=== PATIENT | female | born 1950 | race Caucasian/White ===

== ENCOUNTER 2021-02-18 19:34 | Inpatient (IN) ==
[2021-02-18] MEDS ORDERED: SODIUM CHLORIDE 0.9% 1,000 ML IV STA (19:50)
[2021-02-18 20:21] LABS: Bacteria,Urine Moderate /HPF (Few); Bilirubin,Urine Negative (Negative); Blood, Urine Small mg/dL (Negative); Glucose,Urine (UA) Negative (Negative); Ketones,Urine Negative (Negative); Mucus,Urine Occasional /LPF (Occasional); Nitrite,Urine Positive (Negative); Protein,Urine 30 MG/DL; Squamous Epithelial Cell,Urine Occasional /HPF (0-10); Urine Appearance CLOUDY (Clear); Urine Color Amber (Yellow); Urine Specific Gravity 1.016 (1.001-1.035)
[2021-02-18 20:22] LABS: Barbiturates Screen,Urine Negative (Negative); Basophils % 0.2 % (0.0-0.8); Benzodiazepines Screen,Urine Negative (Negative); Cannabinoid Screen,Urine Negative (Negative); Eosinophils # 0.1 10*3/uL (0.0-0.87); Eosinophils % 1.4 % (0.00-10.9); Hematocrit 38.8 VOL% (35.7-47.0); Hemoglobin 12.2 GM/DL (12.0-16.0); Immature Granulocytes % 0.5 %; Immature Granulocytes Absolute 0.04 #; Lymphocytes # 2.3 10*3/uL (1.4-4.0); Lymphocytes % 26.9 % (21.3-54.2); Mean Corpuscular HGB Conc 31.4 GM/DL (32-36); Mean Corpuscular Volume 100.3 FL (87-102); Mean Platelet Volume 9.6 FL (9.6-12.0); Monocytes % 17.2 % (1.7-12.7); Neutrophils % 53.8 % (38.7-73.9); Opiate Screen,Urine Negative (Negative); Phencyclidine Screen,Urine Negative (Negative); Platelet Count 196 T/CUMM (130-400); Red Blood Count 3.87 MC/CUMM (3.8-5.5); Red Cell Distribution Width 12.3 % (9.3-17.3); White Blood Count 8.5 T/CUMM (4-12)
[2021-02-18 20:39] LABS: Albumin 2.8 G/DL (3.4-5.0); Bilirubin,Total 0.5 MG/DL (0.20-1.00); Calcium 9.6 MG/DL (8.5-10.1); Osmolality,Calculated 285.5 MOS/KG (273-304); Potassium 3.8 MMOL/L (3.5-5.1); Total Protein 6.8 G/DL (6.4-8.2)
[2021-02-18] MEDS ORDERED: LEVOFLOXACIN INJ 500 MG/100 ML PREMIX IV ONE (20:57)
[2021-02-18 23:42] LABS: Lymphocytes 31 % (20-55); Platelet Estimate Normal; Segmented Neutrophils 59 % (50-85); Total Cells Counted 100
[2021-02-18 23:43] LABS: Macrocytosis Slight; Stomatocytes 1+
[2021-02-19] MEDS ORDERED: GLUCAGON 1 MG VIAL IM PRN (03:45)
[2021-02-19] MEDS ORDERED: DEXTROSE 50% 25 GM/50 ML VIAL IV PRN (03:45)
[2021-02-19] MEDS ORDERED: ONDANSETRON 4 MG/2 ML VIAL IV PRN (03:51)
[2021-02-19] MEDS ORDERED: DOCUSATE SODIUM 100 MG CAPSULE PO PRN (03:51)
[2021-02-19] MEDS ORDERED: POTASSIUM CHLORIDE 20 MEQ TABLET PO PRN (03:54)
[2021-02-19] MEDS ORDERED: MAGNESIUM SULF RIDER 2 GM/50 ML PREMIX IV PRN (03:54)
[2021-02-19] MEDS ORDERED: MAGNESIUM SULF RIDER 4 GM/100 ML PREMIX IV PRN (03:54)
[2021-02-19] MEDS: SODIUM CHLORIDE 0.9% 1,000 ML IV SCH ×3 (04:30→23:39)
[2021-02-19 05:03] LABS: Basophils % 0.5 % (0.0-0.8); Eosinophils # 0.2 10*3/uL (0.0-0.87); Eosinophils % 1.8 % (0.00-10.9); Hematocrit 36.1 VOL% (35.7-47.0); Hemoglobin 11.8 GM/DL (12.0-16.0); Immature Granulocytes % 0.5 %; Immature Granulocytes Absolute 0.04 #; Lymphocytes # 2.3 10*3/uL (1.4-4.0); Lymphocytes % 27.7 % (21.3-54.2); Mean Corpuscular HGB Conc 32.7 GM/DL (32-36); Mean Corpuscular Volume 97.3 FL (87-102); Mean Platelet Volume 9.7 FL (9.6-12.0); Monocytes % 17.8 % (1.7-12.7); Neutrophils % 51.7 % (38.7-73.9); Platelet Count 189 T/CUMM (130-400); Red Blood Count 3.71 MC/CUMM (3.8-5.5); Red Cell Distribution Width 12.2 % (9.3-17.3); White Blood Count 8.2 T/CUMM (4-12)
[2021-02-19 05:19] LABS: Osmolality,Calculated 279.7 MOS/KG (273-304); Potassium 3.9 MMOL/L (3.5-5.1)
[2021-02-19 05:36] LABS: Hypochromasia Slight; Lymphocytes 28 % (20-55); Microcytosis Slight; Platelet Estimate Adequate; Segmented Neutrophils 58 % (50-85); Total Cells Counted 100
[2021-02-19] MEDS: INSULIN LISPRO 100 UNIT/ML SUBCUT SCH ×4 (09:21→20:44)
[2021-02-19] MEDS ORDERED: BENZTROPINE 0.5 MG TABLET PO SCH (12:00)
[2021-02-19] MEDS ORDERED: BENZTROPINE 1 MG TABLET PO SCH (13:00)
[2021-02-19] MEDS: DIVALPROEX 500 MG TABLET PO SCH ×2 (13:20→20:44)
[2021-02-19] MEDS: OLANZapine 5 MG TABLET PO SCH ×2 (13:20→20:43)
[2021-02-19] MEDS: SERTRALINE 50 MG TABLET PO SCH (13:20)
[2021-02-19] MEDS ORDERED: ZINC OXIDE PASTE 113 GM TUBE TOP PRN (14:29)
[2021-02-19] MEDS: ACETAMINOPHEN 325 MG TABLET PO PRN (17:06)
[2021-02-19] MEDS: VITAMIN A & D OINT 113 GM TUBE TOP SCH (17:44)
[2021-02-19] MEDS: HEPARIN 5,000 UNIT/1 ML VIAL SUBCUT SCH (18:30)
[2021-02-19] MEDS: MONTELUKAST 10 MG TABLET PO SCH (20:43)
[2021-02-19] MEDS: BENZTROPINE 0.5 MG TABLET PO SCH (20:43)
[2021-02-19] MEDS ORDERED: LEVOFLOXACIN INJ 500 MG/100 ML PREMIX IV SCH (21:00)
[2021-02-20] MEDS: BENZTROPINE 0.5 MG TABLET PO SCH ×2 (02:00→08:59)
[2021-02-20] MEDS: HEPARIN 5,000 UNIT/1 ML VIAL SUBCUT SCH ×3 (02:46→17:59)
[2021-02-20 06:02] LABS: Basophils % 0.2 % (0.0-0.8); Eosinophils # 0.1 10*3/uL (0.0-0.87); Eosinophils % 1.7 % (0.00-10.9); Hematocrit 33.6 VOL% (35.7-47.0); Hemoglobin 10.7 GM/DL (12.0-16.0); Immature Granulocytes % 0.5 %; Immature Granulocytes Absolute 0.04 #; Lymphocytes # 2.6 10*3/uL (1.4-4.0); Lymphocytes % 31.1 % (21.3-54.2); Mean Corpuscular HGB Conc 31.8 GM/DL (32-36); Mean Platelet Volume 9.8 FL (9.6-12.0); Monocytes % 17.7 % (1.7-12.7); Neutrophils % 48.8 % (38.7-73.9); Platelet Count 189 T/CUMM (130-400); Red Blood Count 3.36 MC/CUMM (3.8-5.5); Red Cell Distribution Width 12.4 % (9.3-17.3); White Blood Count 8.3 T/CUMM (4-12)
[2021-02-20 06:26] LABS: Calcium 8.2 MG/DL (8.5-10.1); Osmolality,Calculated 283.3 MOS/KG (273-304); Potassium 3.9 MMOL/L (3.5-5.1)
[2021-02-20] MEDS: SERTRALINE 50 MG TABLET PO SCH (08:59)
[2021-02-20] MEDS: DIVALPROEX 500 MG TABLET PO SCH ×2 (09:00→22:21)
[2021-02-20] MEDS: OLANZapine 5 MG TABLET PO SCH ×2 (09:01→20:30)
[2021-02-20] MEDS: INSULIN LISPRO 100 UNIT/ML SUBCUT SCH ×4 (09:01→22:21)
[2021-02-20] MEDS: SODIUM CHLORIDE 0.9% 1,000 ML IV SCH ×3 (09:01→22:51)
[2021-02-20] MEDS: VITAMIN A & D OINT 113 GM TUBE TOP SCH (09:07)
[2021-02-20 11:52] LABS: Lymphocytes 29 % (20-55); Platelet Estimate Adequate; Polychromasia Slight; Segmented Neutrophils 59 % (50-85); Total Cells Counted 100
[2021-02-20] MEDS ORDERED: GENTAMICIN IV SCH (15:30)
[2021-02-20] MEDS ORDERED: SODIUM CHLORIDE 0.9% IV SCH (15:30)
[2021-02-20] MEDS ORDERED: GENTAMICIN INJ 400 MG in SODIUM CHLORIDE 0.9% 100 ML IV SCH (16:00)
[2021-02-20] MEDS: ACETAMINOPHEN 325 MG TABLET PO PRN (20:30)
[2021-02-20] MEDS: MONTELUKAST 10 MG TABLET PO SCH (20:30)
[2021-02-21] MEDS: HEPARIN 5,000 UNIT/1 ML VIAL SUBCUT SCH ×3 (01:45→16:41)
[2021-02-21 06:18] LABS: Basophils % 0.3 % (0.0-0.8); Eosinophils # 0.2 10*3/uL (0.0-0.87); Eosinophils % 2.8 % (0.00-10.9); Hematocrit 32.2 VOL% (35.7-47.0); Hemoglobin 10.2 GM/DL (12.0-16.0); Immature Granulocytes % 0.5 %; Immature Granulocytes Absolute 0.04 #; Lymphocytes # 3.5 10*3/uL (1.4-4.0); Lymphocytes % 45.9 % (21.3-54.2); Mean Corpuscular HGB Conc 31.7 GM/DL (32-36); Mean Platelet Volume 9.9 FL (9.6-12.0); Monocytes % 15.4 % (1.7-12.7); Neutrophils % 35.1 % (38.7-73.9); Platelet Count 175 T/CUMM (130-400); Red Blood Count 3.22 MC/CUMM (3.8-5.5); Red Cell Distribution Width 12.8 % (9.3-17.3); White Blood Count 7.6 T/CUMM (4-12)
[2021-02-21 06:30] LABS: Calcium 7.7 MG/DL (8.5-10.1); Osmolality,Calculated 288.7 MOS/KG (273-304)
[2021-02-21] MEDS: OLANZapine 5 MG TABLET PO SCH ×2 (08:09→22:01)
[2021-02-21] MEDS: SODIUM CHLORIDE 0.9% 1,000 ML IV SCH ×2 (08:09→13:28)
[2021-02-21] MEDS: INSULIN LISPRO 100 UNIT/ML SUBCUT SCH ×4 (08:09→22:01)
[2021-02-21] MEDS: DIVALPROEX 500 MG TABLET PO SCH ×2 (08:09→22:01)
[2021-02-21] MEDS: BENZTROPINE 0.5 MG TABLET PO SCH ×2 (08:09→22:01)
[2021-02-21] MEDS: SERTRALINE 50 MG TABLET PO SCH (08:09)
[2021-02-21] MEDS: VITAMIN A & D OINT 113 GM TUBE TOP SCH (08:10)
[2021-02-21 09:56] LABS: Eosinophils 3 % (0-10); Lymphocytes 43 % (20-55); Platelet Estimate Adequate; Segmented Neutrophils 39 % (50-85); Total Cells Counted 100
[2021-02-21] MEDS ORDERED: GENTAMICIN INJ 350 MG in SODIUM CHLORIDE 0.9% 100 ML IV SCH (16:00)
[2021-02-21] MEDS: MONTELUKAST 10 MG TABLET PO SCH (22:01)
[2021-02-22] MEDS: HEPARIN 5,000 UNIT/1 ML VIAL SUBCUT SCH ×3 (02:25→16:41)
[2021-02-22 05:12] LABS: Basophils # 0.1 10*3/uL (0.0-0.2); Basophils % 0.8 % (0.0-0.8); Eosinophils # 0.4 10*3/uL (0.0-0.87); Eosinophils % 5.2 % (0.00-10.9); Hematocrit 35.2 VOL% (35.7-47.0); Hemoglobin 11.1 GM/DL (12.0-16.0); Immature Granulocytes % 0.9 %; Immature Granulocytes Absolute 0.07 #; Lymphocytes # 3.7 10*3/uL (1.4-4.0); Lymphocytes % 48.4 % (21.3-54.2); Mean Corpuscular HGB Conc 31.5 GM/DL (32-36); Mean Corpuscular Volume 100.3 FL (87-102); Mean Platelet Volume 9.6 FL (9.6-12.0); Monocytes % 12.7 % (1.7-12.7); Platelet Count 185 T/CUMM (130-400); Red Blood Count 3.51 MC/CUMM (3.8-5.5); Red Cell Distribution Width 12.8 % (9.3-17.3); White Blood Count 7.7 T/CUMM (4-12)
[2021-02-22 05:42] LABS: Eosinophils 7 % (0-10); Lymphocytes 43 % (20-55); Platelet Estimate Adequate; Segmented Neutrophils 42 % (50-85); Total Cells Counted 100
[2021-02-22 05:43] LABS: Hypochromasia Slight; Microcytosis Slight
[2021-02-22 05:44] LABS: Atypical Lymphocytes Few; Osmolality,Calculated 281.1 MOS/KG (273-304); Potassium 3.8 MMOL/L (3.5-5.1)
[2021-02-22] MEDS: INSULIN LISPRO 100 UNIT/ML SUBCUT SCH ×4 (09:05→19:25)
[2021-02-22] MEDS: HALOPERIDOL 5 MG/ML AMP IM PRN (09:48)
[2021-02-22] MEDS: BENZTROPINE 0.5 MG TABLET PO SCH ×2 (11:39→22:09)
[2021-02-22] MEDS: SERTRALINE 50 MG TABLET PO SCH (11:39)
[2021-02-22] MEDS: DIVALPROEX 500 MG TABLET PO SCH ×2 (11:39→22:08)
[2021-02-22] MEDS: SODIUM CHLORIDE 0.9% 1,000 ML IV SCH ×3 (11:53→11:58)
[2021-02-22] MEDS: VITAMIN A & D OINT 113 GM TUBE TOP SCH (11:57)
[2021-02-22] MEDS: OLANZapine 5 MG TABLET PO SCH ×2 (11:58→22:08)
[2021-02-22] MEDS: cefTRIAXone 1,000 MG in SODIUM CHLORIDE 0.9% 100 ML IV SCH (15:19)
[2021-02-22] MEDS: ACETAMINOPHEN 325 MG TABLET PO PRN (15:20)
[2021-02-22] MEDS: MONTELUKAST 10 MG TABLET PO SCH (22:08)
[2021-02-23] MEDS: HEPARIN 5,000 UNIT/1 ML VIAL SUBCUT SCH ×3 (02:37→18:29)
[2021-02-23] MEDS: INSULIN LISPRO 100 UNIT/ML SUBCUT SCH ×4 (07:05→20:44)
[2021-02-23] MEDS: VITAMIN A & D OINT 113 GM TUBE TOP SCH (09:10)
[2021-02-23] MEDS: SERTRALINE 50 MG TABLET PO SCH (09:16)
[2021-02-23] MEDS: OLANZapine 5 MG TABLET PO SCH ×2 (09:16→20:43)
[2021-02-23] MEDS: BENZTROPINE 0.5 MG TABLET PO SCH ×2 (09:17→20:44)
[2021-02-23] MEDS: DIVALPROEX 500 MG TABLET PO SCH ×2 (09:18→20:43)
[2021-02-23] MEDS: ACETAMINOPHEN 325 MG TABLET PO PRN (09:19)
[2021-02-23] MEDS: cefTRIAXone 1,000 MG in SODIUM CHLORIDE 0.9% 100 ML IV SCH (14:09)
[2021-02-23] MEDS: HALOPERIDOL 5 MG/ML AMP IM PRN (18:27)
[2021-02-23] MEDS: MONTELUKAST 10 MG TABLET PO SCH (20:43)
[2021-02-24] MEDS: HEPARIN 5,000 UNIT/1 ML VIAL SUBCUT SCH ×2 (00:39→08:40)
[2021-02-24] MEDS: cefTRIAXone 1,000 MG in SODIUM CHLORIDE 0.9% 100 ML IV SCH (08:39)
[2021-02-24] MEDS: DIVALPROEX 500 MG TABLET PO SCH (08:40)
[2021-02-24] MEDS: OLANZapine 5 MG TABLET PO SCH (08:40)
[2021-02-24] MEDS: SERTRALINE 50 MG TABLET PO SCH (08:40)
[2021-02-24] MEDS: BENZTROPINE 0.5 MG TABLET PO SCH (08:40)
[2021-02-24] MEDS: INSULIN LISPRO 100 UNIT/ML SUBCUT SCH ×2 (09:28→13:50)
[2021-02-24] MEDS: VITAMIN A & D OINT 113 GM TUBE TOP SCH (10:59)
[2021-02-24 12:08] VITALS: BP 130/40
== END 2021-02-24 14:35 | DRG 689 ==
LOC: N.ED 19:34 → SUATTDRO 02-19 00:28 → N.EDINP 02-19 00:28 → N.5E 02-19 02:01
PROVIDERS: ADMIT Hospitalist; ATTEND Internal Medicine

== ENCOUNTER 2022-01-22 00:56 | Inpatient (IN) ==
[2022-01-22 01:47] LABS: Basophils % 0.3 % (0.0-0.8); Eosinophils # 0.1 10*3/uL (0.0-0.87); Eosinophils % 0.7 % (0.00-10.9); Hematocrit 38.2 VOL% (35.7-47.0); Hemoglobin 12.5 GM/DL (12.0-16.0); Immature Granulocytes % 0.2 %; Immature Granulocytes Absolute 0.02 #; Lymphocytes # 3.6 10*3/uL (1.4-4.0); Lymphocytes % 40.8 % (21.3-54.2); Mean Corpuscular HGB Conc 32.7 GM/DL (32-36); Mean Corpuscular Volume 99.7 FL (87-102); Monocytes # 0.9 10*3/uL (0.11-0.8); Monocytes % 10.8 % (1.7-12.7); Neutrophils % 47.2 % (38.7-73.9); Platelet Count 226 T/CUMM (130-400); Red Blood Count 3.83 MC/CUMM (3.8-5.5); Red Cell Distribution Width 12.9 % (9.3-17.3); White Blood Count 8.7 T/CUMM (4-12)
[2022-01-22 01:52] LABS: Bilirubin,Urine Small mg/dL (Negative); Blood, Urine Moderate mg/dL (Negative); Glucose,Urine (UA) Negative (Negative); Ketones,Urine 15 mg/dL (Negative); Nitrite,Urine Positive (Negative); Protein,Urine 30 mg/dL (Negative); Urine Appearance Slightly Cloudy (Clear); Urine Color Yellow (Yellow); Urine Specific Gravity >= 1.030 (1.001-1.035); Urine Urobilinogen 0.2 eU/dL (<2.0); Urine pH 5.5 (4.5-8.0)
[2022-01-22 02:08] LABS: Alanine Aminotransferase 12 U/L (13-56); Albumin 2.8 G/DL (3.4-5.0); Alkaline Phosphatase 55 U/L (45-117); Aspartate Amino Transferase 9 U/L (0-37); Bilirubin,Total < 0.39 MG/DL (0.20-1.00); Blood Urea Nitrogen 25 MG/DL (7-18); Calcium 9.1 MG/DL (8.5-10.1); Carbon Dioxide 29 MMOL/L (21-32); Chloride 106 MMOL/L (98-107); Glucose 122 MG/DL (74-106); Osmolality,Calculated 283.4 MOS/KG (273-304); Potassium 3.9 MMOL/L (3.5-5.1); Sodium 140 MMOL/L (136-145); Total Protein 6.9 G/DL (6.4-8.2)
[2022-01-22 02:13] LABS: Bacteria,Urine Many /HPF (Few); Mucus,Urine Many /LPF (Occasional); RBC,Urine 15-20 /HPF (0-4)
[2022-01-22] MEDS ORDERED: LEVOFLOXACIN INJ 500 MG/100 ML PREMIX IV ONE (02:24)
[2022-01-22] MEDS ORDERED: GLUCAGON 1 MG VIAL IM PRN (03:17)
[2022-01-22] MEDS ORDERED: DEXTROSE 10% 250 ML BAG IV PRN ×2 (03:30→10:51)
[2022-01-22] MEDS: LACTATED RINGERS 1,000 ML IV SCH ×2 (03:45→12:30)
[2022-01-22 06:32] LABS: Risk Ratio 3.93; VLDL Cholesterol 28.4 MG/DL
[2022-01-22 07:23] LABS: Alanine Aminotransferase 13 U/L (13-56); Albumin 2.6 G/DL (3.4-5.0); Alkaline Phosphatase 51 U/L (45-117); Aspartate Amino Transferase 19 U/L (0-37); Bilirubin,Total < 0.39 MG/DL (0.20-1.00); Blood Urea Nitrogen 23 MG/DL (7-18); Calcium 8.6 MG/DL (8.5-10.1); Carbon Dioxide 24 MMOL/L (21-32); Chloride 109 MMOL/L (98-107); Glucose 75 MG/DL (74-106); Osmolality,Calculated 281.4 MOS/KG (273-304); Potassium 4.6 MMOL/L (3.5-5.1); Sodium 140 MMOL/L (136-145); Total Protein 6.5 G/DL (6.4-8.2)
[2022-01-22] MEDS ORDERED: HALOPERIDOL 1 MG TABLET PO SCH (09:00)
[2022-01-22] MEDS: cefTRIAXone 2,000 MG in SODIUM CHLORIDE 0.9% 100 ML IV SCH (09:42)
[2022-01-22] MEDS: SERTRALINE 100 MG TABLET PO SCH (09:44)
[2022-01-22] MEDS: PANTOPRAZOLE 40 MG TABLET PO SCH (09:44)
[2022-01-22] MEDS: DIVALPROEX 250 MG TABLET PO SCH ×2 (09:44→21:34)
[2022-01-22] MEDS: OXYBUTYNIN 5 MG TABLET PO SCH (09:44)
[2022-01-22] MEDS: BENZTROPINE 0.5 MG TABLET PO SCH ×2 (09:44→21:34)
[2022-01-22] MEDS: ENOXAPARIN 40 MG/0.4 ML SYRINGE SUBCUT SCH (09:45)
[2022-01-22] MEDS: CALCIUM (CARBONATE)/VITAMIN D 600 MG-400 UNIT TABLET PO SCH (09:45)
[2022-01-22] MEDS: INSULIN LISPRO 100 UNIT/ML SUBCUT SCH ×3 (12:30→20:45)
[2022-01-22] MEDS: SODIUM CHLORIDE 0.9% 1,000 ML IV SCH (14:10)
[2022-01-22] MEDS ORDERED: DONEPEZIL 10 MG TABLET PO SCH (21:00)
[2022-01-22] MEDS ORDERED: MELATONIN 3 MG TABLET PO SCH (21:00)
[2022-01-22] MEDS ORDERED: HALOPERIDOL 5 MG TABLET PO SCH (21:00)
[2022-01-22] MEDS ORDERED: ATORVASTATIN 20 MG TABLET PO SCH (21:00)
[2022-01-23] MEDS: SODIUM CHLORIDE 0.9% 1,000 ML IV SCH ×2 (04:57→11:19)
[2022-01-23 05:43] LABS: Basophils % 0.4 % (0.0-0.8); Eosinophils # 0.1 10*3/uL (0.0-0.87); Eosinophils % 0.7 % (0.00-10.9); Hematocrit 35.6 VOL% (35.7-47.0); Hemoglobin 11.7 GM/DL (12.0-16.0); Immature Granulocytes % 0.4 %; Immature Granulocytes Absolute 0.03 #; Lymphocytes # 3.8 10*3/uL (1.4-4.0); Lymphocytes % 47.3 % (21.3-54.2); Mean Corpuscular HGB Conc 32.9 GM/DL (32-36); Mean Corpuscular Volume 99.7 FL (87-102); Mean Platelet Volume 10.1 FL (9.6-12.0); Monocytes # 0.8 10*3/uL (0.11-0.8); Neutrophils % 41.2 % (38.7-73.9); Platelet Count 202 T/CUMM (130-400); Red Blood Count 3.57 MC/CUMM (3.8-5.5); Red Cell Distribution Width 12.5 % (9.3-17.3)
[2022-01-23 05:59] LABS: Calcium 8.4 MG/DL (8.5-10.1); Osmolality,Calculated 282.1 MOS/KG (273-304)
[2022-01-23] MEDS: INSULIN LISPRO 100 UNIT/ML SUBCUT SCH ×2 (09:30→13:05)
[2022-01-23] MEDS ORDERED: HALOPERIDOL 1 MG TABLET PO SCH (09:30)
[2022-01-23] MEDS: CALCIUM (CARBONATE)/VITAMIN D 600 MG-400 UNIT TABLET PO SCH (09:47)
[2022-01-23] MEDS: BENZTROPINE 0.5 MG TABLET PO SCH (09:47)
[2022-01-23] MEDS: PANTOPRAZOLE 40 MG TABLET PO SCH (09:47)
[2022-01-23] MEDS: DIVALPROEX 250 MG TABLET PO SCH (09:47)
[2022-01-23] MEDS: cefTRIAXone 2,000 MG in SODIUM CHLORIDE 0.9% 100 ML IV SCH (09:48)
[2022-01-23] MEDS: OXYBUTYNIN 5 MG TABLET PO SCH (09:48)
[2022-01-23] MEDS: SERTRALINE 100 MG TABLET PO SCH (09:48)
[2022-01-23] MEDS: ENOXAPARIN 40 MG/0.4 ML SYRINGE SUBCUT SCH (09:58)
[2022-01-23 13:12] VITALS: BP 109/50
[2022-01-28] MEDS ORDERED: CYANOCOBALAMIN 1000 MCG/1 ML VIAL IM SCH (09:00)
== END 2022-01-23 14:57 | DRG 690 ==
LOC: N.ED 00:56 → N.EDINP 03:17 → INTOOBSV 03:17 → OBSVTOIN 03:17 → N.EDINP 04:29 → N.3E 04:53
PROVIDERS: ADMIT Internal Medicine; ATTEND Internal Medicine